=== PATIENT | male | born 1955 | race Caucasian/White ===

== ENCOUNTER → 2019-06-23 09:40 | Outpatient (CLI) | payer OTHER, SELFPAY ==
--- NOTE | 2019-06-23 09:47 | STEWCON_ITS ---
Reason For Study: Chest Pain; Syncope Stress Results Protocol: Dobutamine Stress Echo Maximum Predicted HR: 157 bpm Target HR: 133 bpm % Maximum Predicted HR: 90 % DurationHeart Rate Stage (mm:ss) (bpm) BP Comment Baseline 57 139/76No Chest Pain; 5 ML Diluted Definity Given DSE 10 MCG 3:21 57 133/58No Chest Pain DSE 20 MCG 3:00 82 128/55No Chest Pain DSE 30 MCG 3:00 110 121/72No Chest Pain DSE 40 MCG 2:19 141 140/87No Chest Pain; Atropine 0.25 MG IVP Recovery 87 125/83No Chest Pain Stress Duration: 11:40 mm:ss Maximum Stress HR: 141 bpm METS: 1 Baseline Echocardiogram Findings Stress Echo Wall motion Data Resting WM Intermediate WM Stress WM Interpretation Summary Dobutamine stress echocardiogram. 63-year-old man with a history of chest pain. Stress protocol: Resting EKG demonstrates sinus bradycardia with a rate of 58 bpm normal intervals are noted resting blood pressures 139/70 6 cm of mercury. Debridement was infused starting at 10 mcg/kg/min increasing to a peak of 40 mcg/kg/min. 0.25 mg of intravenous atropine was administered to augment heart rate. The maximum heart rate attained was 142 bpm which was 90% of maximum corrected heart rate the maximum workload was 1 metabolic equivalent. The patient maintained sinus rhythm throughout the recording. At rest there were no ST or T wave changes noted suggest ischemia peak exercise nonspecific ST-T wave changes were noted. No clinical angina was noted the test was terminated due to attainment of target heart rate. Resting blood pressure was 139/76 with a peak blood pressure 140/87. Stress protocol: Echocardiographic images were obtained at rest with Definity enhancement demonstrating ejection fraction of 60%. With dobutamine infusion there was increment in the ejection fraction to 75% with no wall motion abnormalities noted. Definity enhancement was utilized. Conclusion: Normal dobutamine stress echocardiographic images with no evidence of ischemia. Ordering Physician: Chester Stapleton Referring Physician: Juma Mckeon Performed By: Juma Mckeon MD
== END ==
PROVIDERS: Family Provider Family Medicine; PCP Family Medicine; Referring Provider Physician Assistant; Visit Provider Physician Assistant
DX: R07.89 Other chest pain (principal); R05 Cough
CPT/HCPCS: 93017; 93350; J7040; Q9957; A4216; C8928